=== PATIENT | female | born 1940 | race Caucasian/White ===

== ENCOUNTER 2025-02-03 09:03 | Emergency (ER) | payer MEDICARE ==
[~2025-02-03] VITALS: Ht 162.6 cm; Wt 58.9 kg
[2025-02-03 10:02] LABS: BASOPHILS 0.8 % (0.1-1.2); EOSINOPHILS 4.5 % (0.7-5.8); LYMPHOCYTES 37.2 % (19.3-51.7); MCH 29.1 PG (25.6-32.2); MCHC 32.7 g/dL (32.2-35.5); MCV 89.1 fL (79.4-94.8); MONOCYTES 9.1 % (4.7-12.5); NEUTROPHILS 48.0 % (34.0-71.1); RBC 4.02 M/uL (3.93-5.22)
[2025-02-03 10:13] LABS: INR 0.98 (0.80-1.30); PROTIME 12.3 Sec (11.2-14.2)
[2025-02-03 10:18] LABS: ALT (SGPT) 16.0 U/L (14-59); AST (SGOT) 16.0 U/L (15-37); GLOMERULAR FILTRATION RATE,EST 46.0 mL/min (>60); PROTEIN, TOTAL 6.6 g/dL (6.4-8.2); UREA NITROGEN 27.0 mg/dL (7-18)
[2025-02-03 11:44] VITALS: BP 137/63
== END 2025-02-03 11:44 | disposition home or self-care (01) ==
LOC: ED 09:03
PROVIDERS: Emergency Medicine
DX: M79.651 Pain in right thigh (principal); M25.561 Pain in right knee; Z79.890 Hormone replacement therapy
CPT/HCPCS: 36415; 80053; 85025; 85610; 93971; 99284-25